=== PATIENT | male | born 1935 | race Caucasian/White ===

== ENCOUNTER 2020-05-18 06:18 | Observation (INO) | payer OTHER, MEDICAID ==
[~2020-05-18] VITALS: Ht 172.7 cm; Wt 58.5 kg
[~2020-05-18 06:18] MED LIST: ACETAMINOPHEN-H1 TA1 PO; CLEOCIN HCL75 MG PO; CLONIDINE HYDR0.1 M1 PO; COL100 PO; FINASTERIDE1 MG PO; FLOMAX0.4 MG PO; GLIPIZIDE XL2.5 M1 PO; NOR10 PO; TYLENOL WITH CO1 TA2 PO
[2020-05-18 07:21] VITALS: BP 138/73
[2020-05-18 07:39] LABS: PLATELET COUNT 306 x10^3mcL (130-400); RED CELL DISTRIBUTION WIDTH 13.9 % (11.5-14.5)
[2020-05-18 07:43] LABS: CALCIUM 9.3 mg/dL (8.5-10.1); CARBON DIOXIDE 30.1 mmol/L (21-32); CHLORIDE SERUM 100 mmol/L (98-107); CREATININE SERUM 1.5 mg/dL (0.7-1.3); GLUCOSE SERUM 88 mg/dL (74-106); POTASSIUM SERUM 4.8 mmol/L (3.5-5.1); SODIUM SERUM 133 mmol/L (136-145)
[2020-05-18 11:41] LABS: BAND NEUTROPHIL 1 % (0-10); MONOCYTE 5 % (0-7); SEGMENTED NEUTROPHILS 75 % (37-75); rbc morphology (normal/abnorm) NORMAL (NORMAL)
--- NOTE | 2020-05-18 11:55 | NUR ---
PATIENT ARRIVED FROM OR FROM UNDERGOING A L BKA REVISION. PATIENT DENIES ANY PAIN OR DISCOMFORT AT THIS TIME. PATIENT IS A&OX4, FOLLOWS COMMANDS AND COOEPRATES WELL. TELE #29, NSR, DENIES CHEST PAIN. PERIPHERAL PULSES PALPABLE W/ NO SIGNS OF EDEMA, L BKA WITH KNEE IMMOBILIZER OBSERVED. LUNG SOUNDS DIMINISHED BILATERALLY, ON RA, O2 SAT 97%, DENIES SOB. NORMAOCTIVE BSX4, ABD SOFT AND FLAT, DENIES ABD PAIN. BEDREST AT THIS TIME. PATIENT DENIES ANY PAIN, AND INSTRUCTED PATIENT TO NOTIFY ME IF PATIENT REQUIRES PAIN MEDICATION. ALL QUESTIONS AND CONCERNS AHVE BEEN ADDRESSED AT THIS TIME, WILL CONTINUE TO MONITOR.
[2020-05-18 12:25] VITALS: BP 105/44
[2020-05-18 12:34] VITALS: BP 110/43
--- NOTE | 2020-05-18 15:04 | NUR ---
PATIENT STATES TAHT HE DOES NOT HAVE PAIN AT THIS TIME. ALL QUESTIONS AND CONCERNS HAVE BEEN ADDRESSED. WILL CONTINUE TO MONITOR PATIENT.
[2020-05-18 16:30] VITALS: BP 173/97
[2020-05-18 21:19] VITALS: BP 140/57
--- NOTE | 2020-05-18 22:09 | NUR ---
RECEIVED PATIENT IN BED.AWAKE,ALERT,AND RRIENTED WITH PERIOD OF FORGETFULNESS. ON TELE #24 WITH NSR.S/P REVISION OF LEFT BKA WITH DRESSING INTACT ,NO DRAINAGE NOTED.DENIES PAIN AND DISCOMFORT AT THIS TIME.CAQLL LIGHT BWITHIN REACH.
[2020-05-19 05:08] VITALS: BP 127/49
--- NOTE | 2020-05-19 07:35 | NUR ---
RECEIVED PT FROM DESIZING MACHINE OPERATOR HEAD END. ASSESSED AND DOCUMENTED. DENIES ANY PAIN. STABLE. SAFTEY PRECAUTIONS ARE IN PLACE. WILL MONITOR.
[2020-05-19 07:53] LABS: CALCIUM 8.4 mg/dL (8.5-10.1); CHLORIDE SERUM 100 mmol/L (98-107); CREATININE SERUM 1.1 mg/dL (0.7-1.3); GLUCOSE SERUM 163 mg/dL (74-106); POTASSIUM SERUM 4.6 mmol/L (3.5-5.1); SODIUM SERUM 133 mmol/L (136-145)
[2020-05-19 07:59] VITALS: BP 133/50
[2020-05-19 08:06] LABS: BASOPHIL % 0.5 % (0-2); PLATELET COUNT 265 x10^3mcL (130-400); RED CELL DISTRIBUTION WIDTH 14.2 % (11.5-14.5)
--- NOTE | 2020-05-19 12:00 | NUR ---
PT RESTING IN BED COMFORTABLY. DENIES ANY PAIN.
[2020-05-19 12:18] VITALS: BP 143/57
[2020-05-19 13:42] VITALS: BP 143/57
--- NOTE | 2020-05-19 15:00 | NUR ---
PER CHARGE NURSE AND DRESSING CHANGE DONE TOMORROW, DONOT REMOVE IMMOBLIZER. NOT ABLE TO TAKE DC PICTURE. DRESSING AND IMMOBLIZER CDI. PT IS STABLE.
--- NOTE | 2020-05-19 15:55 | NUR ---
PT C/O LLE PAIN,11/17. ADMINISTRED TYLENOL W/ CODIENE PO. WILL MONITOR.
--- NOTE | 2020-05-19 16:15 | NUR ---
CALLED TO [facility] TEL.[phone] AND SPOKE W/ MELANIE DANG.SUPERVISOR [employer] AND TOLD THE TRANSFER BACK TO THEIR FACILTY AND SHE STATED NOBODY TOLD ABOUT THE TRANSFER. CALLED TO [facility] AND TOLD THAT MARYJANE CHAVEZ CALLED THE FACILTY. SAMANTHA ADVICE TO FAX THE CLINICAL RECORDS [phone] AND TEL NO.[phone] TO AFTER HOURS [facility].
[2020-05-19 16:19] VITALS: BP 129/54
--- NOTE | 2020-05-19 16:55 | NUR ---
PT IS SLEEPING THIS TIME. CALLED PT'S DAUGHTER AND INFORMED HER ABOUT [facility] SHE AGREED. PT IS A/O X3 AGREED TRANSFER ALSO.
--- NOTE | 2020-05-19 18:15 | NUR ---
CALLED AND GAVE REPORT TO [facility] AND SPOKE WITH NURSE NAVARRO. PT IS STABLE, WAITING FOR TRANSPORT.
--- NOTE | 2020-05-19 19:20 | NUR ---
[facility] ARRIVED TO TRANSFER PATIENT TO [facility].
--- NOTE | 2020-05-19 19:20 | NUR ---
PT REMAINS STABLE, WAITING FOR TRANSPORT.
--- NOTE | 2020-05-19 19:22 | NUR ---
GAVE REPORT TO PM SHIFT NURSE.
--- NOTE | 2020-05-19 19:23 | NUR ---
RECEIVED REPORT FROM DAY NURSE. PER DAY NURSE, PATIENT IS TO BE TRANSFERRED TO [facility], BOTH IVS LFA AND RFA WELL TELE HAVE ALREADY BEEN DC'ED, DISCHARGE PAPERWORK HAS BEEN ALREADY BEEN SIGNED BY PATIENT AND WITNESSED, AND PATIENT HAS NO PATIENT BELONGINGS @ BEDSIDE. [facility] ARRIVED TO TRANSFER PATIENT TO [facility]. ASSESSED PATIENT, PATIENT RESTING IN BED, A/O X3, PERIODS OF FORGETFULNESS. BREATHING E/U ON ROOM AIR, SPO2 98%, DENIES SOB AND PAIN IN GENERAL @ THIS TIME. NO TELE IN PLACE. ABD SOFT AND ROUND. NO EDEMA NOTED. S/P REVISION OF L BKA, L BKA DRESSED, WITH KNEE IMMOBILIZER IN PLACE, CDI, ELEVATED ON PILLOW. INFORMED PATIENT THAT HE WILL BE TRANSFERRING BACK TO [facility] LATER TONIGHT, PATIENT VERBALIZED UNDERSTANDING. PATIENT HAS NO IV ACCESS @ THIS TIME. PATIENT HAS NO PATIENT BELONGINGS @ BEDSIDE INCLUDING CABINETS.
--- NOTE | 2020-05-19 19:40 | NUR ---
GAVE REPORT AND TRANSFER PAPERWORK TO [facility]. REMOVED PATIENT'S PATIENT ID BAND AND BLOOD BANK BAND. PATIENT STATED THAT HE HAD NO PATIENT BELONGINGS, NO PATIENT BELONGINGS FOUND @ BEDSIDE. PATIENT TRANSPORTED OFF UNIT WITH KNEE IMMOBILIZER IN PLACE @ [facility].
== END 2020-05-19 19:44 ==
LOC: DS 06:18 → DU 08:48 → DS 09:00 → OR 09:00 → MU 12:01 → DU 12:03
PROVIDERS: Internal Medicine; ADMIT Surgery; ATTEND Surgery
DX: T87.89 Other complications of amputation stump (principal); E11.51 Type 2 diabetes mellitus with diabetic peripheral angiopathy without gangrene; I10 Essential (primary) hypertension
CPT/HCPCS: G0378; J0690; J1170; J2001; J3010; J3490; Q0092